=== PATIENT | male | born 1940 | race Caucasian/White ===

== ENCOUNTER 2016-12-15 09:16 | Emergency (ER) | payer OTHER, MEDICARE ==
[2016-12-15 09:23] VITALS: TEMP 97.4; BMI 26.6
[2016-12-15] MEDS ORDERED: SODIUM CHLORIDE 500 ML IV STA (09:31)
[2016-12-15 09:47] LABS: BASOPHIL 2.2 % (0-2.0); EOSINOPHIL 2.7 % (0-4.5); MCH 30.9 pg (25.7-33.7); MCHC 34.1 g/dl (32.0-35.9); MEAN CELL VOLUME 90.7 fl (80-96); MEAN PLT VOLUME 8.2 fl (7.5-11.1); NEUTROPHILS 58.4 % (42.8-82.8); PLATELET COUNT 193 K/MM3 (134-434); RDW 13.9 % (11.9-15.9); WHITE BLOOD COUNT 7.4 K/mm3 (4.0-10.0)
[2016-12-15 10:07] LABS: ALBUMIN 3.4 g/dl (3.4-5.0); ANION GAP 7 (8-16); BILIRUBIN,TOTAL 1.5 mg/dL (0.2-1.0); CALCIUM 9.1 mg/dL (8.5-10.1); CO2 29 mmol/L (21-32); CREATININE 1.3 mg/dL (0.7-1.3); GLUCOSE,RANDOM 106 mg/dL (74-106); SGOT/AST 17 U/L (15-37); SGPT/ALT 23 U/L (12-78); TOT PROT 6.9 g/dl (6.4-8.2)
[2016-12-15 10:09] LABS: ALK PHOS 53 U/L (45-117); TROPONIN I < 0.02 ng/ml (0.00-0.05)
[2016-12-15 10:46] LABS: INR 1.07 (0.82-1.09); PROTHROMBIN TIME (PATIENT) 11.8 SEC (9.98-11.88)
--- NOTE | 2016-12-15 11:10 | PDOC ---
History of Present Illness - General Chief Complaint: Syncope/Near Syncope Stated Complaint: Syncope/Near Syncope Time Seen by Provider: 12/15/16 09:19 History Source: Patient Exam Limitations: No Limitations - History of Present Illness Initial Comments: 12/15/16 11:34 76-year-old male presents to the ED with a near syncopal episode. Patient states was in cardiology to receive Persantine stress test when the IV was placed into his right hand and patient began to complain of dizziness and felt as if he was going to faint. Patient denied chest pain, nausea, visual changes, headache, or palpitations with episode. Patient states history of CAD, CVA with no residual, and near syncope. Presenting Symptoms: Near-Syncope Timing/Duration: reports: resolved prior to arrival Severity/Quality: reports: mild Nitro Today/Relief: Yes: no nitro taken today Aspirin Received prior to arrival (Core Measure): Yes: no aspirin today Associated Symptoms: Yes: Dizziness, Syncope (near) Past History - Past Medical History Allergies/Adverse Reactions: Allergies Allergy/AdvReac Type Severity Reaction Status Date / Time poison luz extract Allergy Severe Verified 12/15/16 09:18 [Poison Luz Extract] Home Medications: Ambulatory Orders Aspirin Coated [Ecotrin -] 81 mg PO DAILY #90 tablet.ec 11/16/14 Atenolol [Tenormin -] 25 mg PO DAILY 11/30/15 Amlodipine Besylate 5 mg PO DAILY 12/15/16 Anemia: No Asthma: No Cancer: No Cardiac Disorders: No CVA: Yes (CVA 01/2014, 11/27) COPD: No CHF: No Dementia: No Diabetes: No GI Disorders: No Disorders: No HTN: Yes Hypercholesterolemia: Yes Liver Disease: No Suicide Attempt (Hx): No Seizures: No Thyroid Disease: No - Surgical History Abdominal Surgery: No Appendectomy: Yes Cardiac Surgery: No Cholecystectomy: No Lung Surgery: No Neurologic Surgery: No Orthopedic Surgery: No - Immunization History Immunization Up to Date: Yes - Psycho/Social/Smoking Cessation Hx Anxiety: No Suicidal Ideation: No Smoking Status: No Smoking History: Never smoked Years of Tobacco Use: 0 Have you smoked in the past 12 months: No Number of Cigarettes Smoked Daily: 0 Information on smoking cessation initiated: No Hx Alcohol Use: No Drug/Substance Use Hx: No Substance Use Type: None Hx Substance Use Treatment: No Cardiac Specific PMH - Complaint Specific PMHX Angina: Yes Pacemaker: No Review of Systems - Review of Systems Able to Perform ROS?: Yes Constitutional: No: Symptoms Reported HEENTM: No: Symptoms Reported Respiratory: No: Symptoms reported Cardiac (ROS): Yes: Lightheadedness, Syncope (near) ABD/GI: No: Symptoms Reported : No: Symptoms Reported Musculoskeletal: No: Symptoms Reported Integumentary: No: Symptoms Reported Neurological: No: Symptoms reported Endocrine: No: Symptoms Reported Hematologic/Lymphatic: No: Symptoms Reported *Physical Exam - Vital Signs Last Vital Signs Temp Pulse Resp BP Pulse Ox 97.4 F L 65 16 153/76 97 12/15/16 09:18 12/15/16 10:01 12/15/16 10:01 12/15/16 10:01 12/15/16 10:01 - Physical Exam General Appearance: Yes: Nourished, Appropriately Dressed. No: Apparent Distress HEENT: positive: EOMI, NEIL, TMs Normal, Pharynx Normal (moist). negative: Pale Conjunctivae Neck: positive: Supple Respiratory/Chest: positive: Lungs Clear, Normal Breath Sounds. negative: Respiratory Distress, Accessory Muscle Use Cardiovascular: positive: Regular Rhythm, Regular Rate. negative: Murmur Vascular Pulses: Dorsalis-Pedis (R): 2+, Doralis-Pedis (L): 2+ Gastrointestinal/Abdominal: positive: Soft. negative: Tenderness Integumentary: positive: Normal Color, Warm, Moist. negative: Pale, Clammy Neurologic: positive: Normal Mood/Affect, Motor Strength 5/5 (moving all extremeties actively) Heart Score/ECG Review - ECG Intrepretation Rhythm: Regular Rhythm (rate 71. normal sinus rhythm. no acute findings) ED Treatment Course - LABORATORY CBC & Chemistry Diagram: 12/15/16 09:34 12/15/16 09:34 - ADDITIONAL ORDERS Additional order review: Laboratory Results 12/15/16 12/15/16 12/15/16 11:20 09:34 09:34 INR 1.07 Sodium 142 Potassium 4.4 Chloride 106 Carbon Dioxide 29 D Anion Gap 7 L BUN 23 H D Creatinine 1.3 Creat Clearance w eGFR 53.82 Random Glucose 106 Calcium 9.1 Total Bilirubin 1.5 H D AST 17 D ALT 23 D Alkaline Phosphatase 53 Creatine Kinase 77 Troponin I < 0.02 Total Protein 6.9 Albumin 3.4 Urine Color Ltyellow Urine Appearance Clear Urine pH 6.0 Ur Specific [place] 1.016 Urine Protein Negative Urine Glucose (UA) Negative Urine Ketones Negative Urine Blood 1+ H Urine Nitrite Negative Urine Bilirubin Negative Urine Urobilinogen Negative Ur Leukocyte Esterase Negative Urine RBC <1 Urine WBC 2 Urine Mucus Rare 12/15/16 09:34 INR Sodium Cancelled Potassium Cancelled Chloride Cancelled Carbon Dioxide Cancelled Anion Gap Cancelled BUN Cancelled Creatinine Cancelled Creat Clearance w eGFR Cancelled Random Glucose Cancelled Calcium Cancelled Total Bilirubin Cancelled AST Cancelled ALT Cancelled Alkaline Phosphatase Cancelled Creatine Kinase Troponin I Total Protein Cancelled Albumin Cancelled Urine Color Urine Appearance Urine pH Ur Specific [place] Urine Protein Urine Glucose (UA) Urine Ketones Urine Blood Urine Nitrite Urine Bilirubin Urine Urobilinogen Ur Leukocyte Esterase Urine RBC Urine WBC Urine Mucus 12/15/16 09:34 RBC 4.51 MCV 90.7 MCHC 34.1 RDW 13.9 MPV 8.2 Neutrophils % 58.4 Lymphocytes % 27.7 Monocytes % 9.0 Eosinophils % 2.7 D Basophils % 2.2 H D - Medications Given in the ED: ED Medications Discontinued Medications Generic Name Dose Route Start Last Admin Trade Name Freq PRN Reason Stop Dose Admin Sodium Chloride 500 mls @ 500 mls/hr 12/15/16 09:31 12/15/16 09:33 Normal Saline - IV 12/15/16 10:30 500 mls/hr ASDIR STA Administration Medical Decision Making - Medical Decision Making 12/15/16 09:49 Patient with a near syncopal episode after having an IV placed in his right hand. Patient arrives asymptomatic but did have a rapid response called cardiac cardiology since patient was preparing for a Persantine stress test. Patient states did eat oatmeal this morning and denies any discomfort presently. Patient concerning for ACS but likely due to vasovagal or pain response. Patient will also have urine and IV fluids ordered. 12/15/16 11:51 Laboratory Tests 12/15/16 12/15/16 12/15/16 09:34 09:34 09:34 WBC 7.4 D Hgb 13.9 D Hct 40.9 D Neutrophils % 58.4 INR 1.07 Sodium 142 Potassium 4.4 Chloride 106 Carbon Dioxide 29 D Anion Gap 7 L BUN 23 H D Creatinine 1.3 Total Bilirubin 1.5 H D AST 17 D ALT 23 D Troponin I < 0.02 Urine Blood Ur Leukocyte Esterase Urine WBC 12/15/16 11:20 WBC Hgb Hct Neutrophils % INR Sodium Potassium Chloride Carbon Dioxide Anion Gap BUN Creatinine Total Bilirubin AST ALT Troponin I Urine Blood 1+ H Ur Leukocyte Esterase Negative Urine WBC 2 Chest x-ray negative. Case will be discussed with Dr. romo, patient's primary care physician since patient has remained pain symptomatic since being in the ER and requesting to eat. 12/15/16 11:54 Case discussed with patient's primary care physician Dr. Romo who agrees patient may be discharged home and told to follow-up with him in the office next week to have his stress test rescheduled. Patient will go home with son and . Patient tolerated a breakfast with coffee. will repeat vitals. *DC/Admit/Observation/Transfer Diagnosis at time of Disposition: Vasovagal near-syncope - Discharge Dispostion Disposition: HOME Condition at time of disposition: Improved - Referrals Referrals: Umer Romo MD [Primary Care Provider] - - Patient Instructions Printed Discharge Instructions: DI for Dizziness-Nonvertigo Additional Instructions: I have spoken to Dr. romo and feels he may be discharged home and to follow- up with him in the office next week to have your stress test rescheduled. I recommending resting today and eating a well-balanced meal including fluids. If you develop any chest pain, dizziness, or nausea please return to the emergency room immediately
[2016-12-15 11:36] LABS: URINE APPEARANCE CLEAR; URINE BILIRUBIN NEGATIVE (NEGATIVE); URINE COLOR LTYELLOW; URINE GLUCOSE (UA) NEGATIVE (NEGATIVE); URINE KETONE NEGATIVE (NEGATIVE); URINE LEUK ESTERASE NEGATIVE (NEGATIVE); URINE NITRITE NEGATIVE (NEGATIVE); URINE PROTEIN NEGATIVE (NEGATIVE); URINE UROBILINOGEN NEGATIVE E.U./dl (0.2-1.0)
[2016-12-15 11:40] LABS: URINE BLOOD 1+ (NEGATIVE)
[2016-12-15 11:44] LABS: URINE MUCUS RARE; URINE RBC <1 /hpf (0-3); URINE WBC 2 /hpf (3-5)
[2016-12-15 12:15] VITALS: BP 145/86; PULSE 78
--- NOTE | 2016-12-15 17:26 | EKG ---
Test Reason : Blood Pressure : / mmHG Vent. Rate : 071 BPM Atrial Rate : 071 BPM P-R Int : 206 ms QRS Dur : 090 ms QT Int : 402 ms P-R-T Axes : 020 038 010 degrees QTc Int : 436 ms NORMAL SINUS RHYTHM NORMAL ECG WHEN COMPARED WITH ECG OF 16-FEB-2015 08:36, NONSPECIFIC T WAVE ABNORMALITY NO LONGER EVIDENT IN LATERAL LEADS Confirmed by MARTIN YOUNG MD ([id number]) on 12/15/2016 5:26:01 PM Referred By: Confirmed By:MARTIN YOUNG MD
== END 2016-12-15 12:18 | disposition home or self-care (01) ==
LOC: JER 09:16
PROC: 3E0337Z Introduction of Electrolytic and Water Balance Substance into Peripheral Vein, Percutaneous Approach (ICD-10-PCS; principal; 2016-12-15)
DX: R55 Syncope and collapse (principal); I10 Essential (primary) hypertension; E78.00 Pure hypercholesterolemia, unspecified; Z86.73 Personal history of transient ischemic attack (TIA), and cerebral infarction without residual deficits
CPT/HCPCS: 36415; 71010-TC; 80053; 81003; 81015; 82550; 84484; 85025; 85610; 93005; 93010; 99285-25

== ENCOUNTER 2018-12-11 12:49 | Observation (INO) | payer OTHER, MEDICARE ==
[2018-12-11 13:47] LABS: BASO % 0.5 % (0-2.0); HEMATOCRIT 40.3 % (35.4-49); HEMOGLOBIN 14.2 GM/dL (11.7-16.9); MCH 32.9 pg (25.7-33.7); MCHC 35.3 g/dl (32.0-35.9); MEAN CELL VOLUME 93.3 fl (80-96); MEAN PLT VOLUME 8.1 fl (7.5-11.1); MONO % 7.2 % (3.8-10.2); NEUT % 81.3 % (42.8-82.8); PLATELET COUNT 187 K/MM3 (134-434); RBC 4.32 M/mm3 (4.00-5.60); RDW 13.1 % (11.9-15.9); WHITE BLOOD COUNT 10.1 K/mm3 (4.0-10.0)
--- NOTE | 2018-12-11 13:53 | PDOC ---
History of Present Illness <Christel Cardona - Last Filed: 12/11/18 17:55> - General History Source: Patient, EMS, Family Exam Limitations: No Limitations <Megan Decker - Last Filed: 12/14/18 07:18> - General Chief Complaint: Syncope/Near Syncope Stated Complaint: HYPOTENSION Time Seen by Provider: 12/11/18 12:58 - History of Present Illness Initial Comments: 12/11/18 15:18 78 year old male with PMH of HTN, CVA(with residual R sided weakness), cervical spine radiculopathy, duodenal ulcer, head trauma in , PTSD, and obstructive sleep apnea [place]S [place] with son at bedside for syncope and weakness in lower extremities, that precipitated his fall yesterday. As per son at bedside, patient had a syncopal episode at 1230pm lasting for a few seconds at the [place] clinic for [place] doctors appointment. As per son , patient has had worsening weakness in lower extremities within the last month. Son reports patient fell and struck his head on a tool box last night and subsequently denied seeking medical evaluation. EMS administered IV fluids en route to ED secondary to patient being hypotensive on scene. Denies chest pain, shortness of breath, headache, dizziness, and recurrent falls. As per son at bedside, patient visits [place] clinic for physical therapy. Of note, patient has left lower extremities tremors and right lower extremity weakness at baseline. PCP: Dr. Romo Machine Washer: Dr. Miranda MENA Constitutional: no fevers or chills. HEENT: no headache or dizziness. No congestion. No visual/hearing disturbances. CVS: no cp or syncope. Resp: no sob. No cough. Gastrointestinal: no abdominal pain, nausea or vomiting. Genitourinary: no urinary sx, hematuria. MUSCULOSKELETAL: No joint pain and swelling. No neck or back pain. SKIN: no redness or skin changes, no discharge, no rash. No wounds. Hematologic: no easy bruising/bleeding. NEUROLOGIC: (+)Weakness in lower extremities >upper extremities with fall last night and no LOC. (+)syncope. No headache, dizziness, or altered mental status. No numbness or tingling. Allergic/Immunologic: no allergies All other systems reviewed and negative, or as documented in HPI. Physical exam (general medical) General: Well appearing, awake and alert, NAD. GCS 15 HEENT: PERRL, EOMI, clear conjunctiva, anicteric, moist mucus membranes, clear oropharynx, no oral lesions.. +Right temporal forehead swelling and ecchymosis. Neck: neck supple, FROM Resp: CTAB, normal and even respirations, no respiratory distress CVS: RRR, no murmurs, 2+ peripheral pulses throughout, no peripheral edema Abdomen: soft, NTND, no rebound or guarding. No CVAT. Back: nontender, normal inspection and ROM MSK: no edema, MELENEDZ x4, ROM intact. No clubbing or cyanosis. normal bulk and tone. Extremities: no calf tenderness Neuro: alert, oriented appropriately; no focal neurologic deficits, 5/5 prox and distal strength in all extrem. No pronator drift. No dysmetria, finger to nose bilaterally symmetric. Speech clear. Skin: warm and well perfused, cap refill <2 sec, normal color (Christel Cardona) Past History <Christel Cardona - Last Filed: 12/11/18 17:55> - Past Medical History Anemia: No Asthma: No Cancer: No Cardiac Disorders: No CVA: Yes (CVA 01/2014, 11/27) COPD: No CHF: No Dementia: No Diabetes: No GI Disorders: No Disorders: No HTN: Yes Hypercholesterolemia: Yes Liver Disease: No Seizures: No Thyroid Disease: No Other medical history: CERVICA SPINE RADICULOPATHY, FX S1-S3,PTSD [place] [facility] - Surgical History Abdominal Surgery: No Appendectomy: Yes Cardiac Surgery: No Cholecystectomy: No Lung Surgery: No Neurologic Surgery: No Orthopedic Surgery: No - Immunization History Immunization Up to Date: Yes - Suicide/Smoking/Psychosocial Hx Smoking Status: No Smoking History: Never smoked Years of Tobacco Use: 0 Have you smoked in the past 12 months: No Number of Cigarettes Smoked Daily: 0 Information on smoking cessation initiated: No Hx Alcohol Use: No Drug/Substance Use Hx: No Substance Use Type: None Hx Substance Use Treatment: No <Megan Decker - Last Filed: 12/14/18 07:18> - Past Medical History Allergies/Adverse Reactions: Allergies Allergy/AdvReac Type Severity Reaction Status Date / Time poison luz extract Allergy Severe Verified 12/11/18 13:11 [Poison Luz Extract] Home Medications: Ambulatory Orders Amlodipine Besylate 5 mg PO DAILY 12/15/16 Nortriptyline HCl [Pamelor -] 10 mg PO HS 12/11/18 Oxybutynin Chloride [Ditropan Xl] 10 mg PO DAILY 12/11/18 Tamsulosin HCl 0.4 mg PO DAILY 12/11/18 Amlodipine Besylate 5 mg PO DAILY 12/12/18 Aspirin [ASA -] 81 mg PO DAILY 12/12/18 Atorvastatin Ca [Lipitor] 10 mg PO HS 12/12/18 Donepezil HCl 10 mg PO DAILY 12/12/18 Metoprolol Tartrate 25 mg PO DAILY 12/12/18 Oxybutynin Chloride [Oxybutynin Chloride ER] 10 mg PO DAILY 12/12/18 Tamsulosin HCl 0.4 mg PO DAILY 12/12/18 Cardiac Specific PMH - Complaint Specific PMHX Angina: Yes Pacemaker: No <Megan Decker - Last Filed: 12/14/18 07:18> - Vital Signs Last Vital Signs Temp Pulse Resp BP Pulse Ox 98.1 F 65 20 129/68 95 12/13/18 14:00 12/13/18 14:00 12/13/18 14:00 12/13/18 14:00 12/13/18 07:31 - Procedure Monitoring Vital Signs: Procedure Monitoring Vital Signs Temperature 98.1 F 12/13/18 14:00 Pulse Rate 65 12/13/18 14:00 Respiratory Rate 20 12/13/18 14:00 Blood Pressure 129/68 12/13/18 14:00 O2 Sat by Pulse Oximetry (%) 95 12/13/18 07:31 ED Treatment Course - LABORATORY CBC & Chemistry Diagram: 12/11/18 13:22 12/11/18 13:22 <Christel Cardona - Last Filed: 12/11/18 17:55> - LABORATORY CBC & Chemistry Diagram: 12/11/18 13:22 12/11/18 13:22 <Megan Decker - Last Filed: 12/14/18 07:18> - ADDITIONAL ORDERS Additional order review: 12/11/18 13:22 RBC 4.32 MCV 93.3 MCHC 35.3 RDW 13.1 MPV 8.1 Neutrophils % 81.3 D Lymphocytes % 9.0 D Monocytes % 7.2 Eosinophils % 2.0 Basophils % 0.5 - RADIOLOGY Radiology Studies Ordered: Category Date Time Status HEAD CT WITHOUT CONTRAST [CT] Stat CT Scan 12/11/18 14:25 Completed CHEST X-RAY PORTABLE* [RAD] Stat Radiology 12/11/18 12:59 Completed - Medications Given in the ED: ED Medications Discontinued Medications Generic Name Dose Route Start Last Admin Trade Name Zenq PRN Reason Stop Dose Admin Aspirin 81 mg 12/13/18 10:00 12/13/18 09:38 Asa - PO 81 mg DAILY VICKI Administration Atorvastatin Calcium 20 mg 12/12/18 22:00 12/12/18 22:05 Lipitor - PO 20 mg HS VICKI Administration Donepezil HCl 10 mg 12/12/18 22:00 12/12/18 22:05 Aricept - PO 10 mg HS VICKI Administration Guaifenesin 10 ml 12/12/18 00:20 12/12/18 01:41 Robitussin - PO 12/12/18 00:21 10 ml ONCE ONE Administration Heparin Sodium (Porcine) 5,000 unit 12/12/18 22:00 12/13/18 09:38 Heparin - SQ 5,000 unit BID VICKI Administration Sodium Chloride 1,000 mls @ 75 mls/hr 12/12/18 11:30 12/12/18 11:49 Normal Saline - IV 75 mls/hr ASDIR VICKI Administration Metoprolol Tartrate 25 mg 12/12/18 11:30 12/13/18 09:38 Lopressor - PO 25 mg DAILY VICKI Administration Nortriptyline HCl 10 mg 12/12/18 22:00 12/12/18 22:11 Pamelor - PO 10 mg HS VICKI Administration Tamsulosin HCl 0.4 mg 12/12/18 11:30 12/13/18 09:38 Flomax - PO 0.4 mg DAILY@0830 VICKI Administration Medical Decision Making <Christel Cardona - Last Filed: 12/11/18 17:55> <Megan Decker - Last Filed: 12/14/18 07:18> - Medical Decision Making 12/11/[address] Mackenzie at 16:54. (Christel Cardona) 12/11/18 15:42 I, Megan Decker MD, attest that this document has been prepared under my direction and personally reviewed by me in its entirety. I further attest, that it accurately reflects all work, treatment, procedures and medical decision -making performed by me. See HPI for details Vital signs reviewed, wnl. normotensive here. Prior notes reviewed, including admissions, discharges and consultations. laboratory results and imaging reviewed, basic labs and lytes wnl, baseline anemia, no changes UA_neg for infection. CXR_large heart, unremarkable otherwise Cardiac panel_neg trop EKG normal sinus rhythm, no interval abnormalities, narrow QRS, ST and T wave segments and morphology normal. Nonspecific T wave abnormalities - unchanged from prior CT head neg for bleed or injury. +cerebral atrophy with microvessel changes, chronic sinusitis, but not symptomatic. ED course: no acute events. NIHSS 1, for chronic LLE weakness/drift. no other acute changes/deficits. doubt CVA with exam and findings gait at baseline, but feels dizzy. with assistance. cards cs with Dr Carmen, per request, consult placed in (shot man is usually Dr Malik) admitting to Dr Mackenzie, placed in. dispo: admit for syncope workup, tele monitor. gait at risk of falls, so will need PT eval and therapy/adjustments. pt and family made aware of impression and plan.. 12/11/18 17:54 12/14/18 07:18 (Megan Decker) *DC/Admit/Observation/Transfer <Christel Cardona - Last Filed: 12/11/18 17:55> - Discharge Dispostion Decision to Admit order: Yes <Megan Decker - Last Filed: 12/14/18 07:18> Diagnosis at time of Disposition: Syncope, Weakness - Discharge Dispostion Disposition: HOME Condition at time of disposition: Improved - Attestations Scribe Attestion: Documentation prepared by Christel Cardona, acting as medical office administrator for Megan Decker MD. (Christel Cardona) NIH Stroke Scale - Last Known Well Date/Time & Onset Date Last Known Well: 12/11/18 Time Last Known Well: 12:30 - Initial Evaluation Level of consciousness: Alert Ask patient the month and their age: Answers both correctly Ask patient to open & close eyes; make fist and let go: Obeys both correctly Best gaze (horizontal eye movement): Normal Visual field testing: No visual field loss Facial paresis (Show teeth/raise eyebrows/close eyes tight): Normal symmetrical movement Motor Function: Left Arm: Normal Motor Function: Right Arm: Normal (extends arm 90 (or 45) degrees for 10 seconds without drift Motor Function: Left Leg: Drift Motor Function: Right Leg: Normal (extends leg 30 degrees for 5 seconds without drift) Limb Ataxia: No ataxia Sensory(Use pinprick test arms,legs,trunk,face/side to side): Normal Best language (Describe picture, name items, read sentences): No Aphasia Dysarthria (read several words): Normal articulation Extinction and Inattention: No abnormality (chronic) - Total Score NIH Stroke Scale Score: 1 <Megan Decker - Last Filed: 12/14/18 07:18>
[2018-12-11 13:56] LABS: INR 1.06 (0.83-1.09); PROTHROMBIN TIME (PATIENT) 12.5 SEC (9.7-13.0)
[2018-12-11 14:18] LABS: ALBUMIN 3.4 g/dl (3.4-5.0); ALK PHOS 57 U/L (45-117); ANION GAP 4 MMOL/L (8-16); BILIRUBIN,TOTAL 1.1 mg/dL (0.2-1); BLOOD UREA NITROGEN 15 mg/dL (7-18); CALCIUM 8.1 mg/dL (8.5-10.1); CHLORIDE 105 mmol/L (98-107); CO2 29 mmol/L (21-32); CREATININE 1.3 mg/dL (0.55-1.3); GLUCOSE,RANDOM 109 mg/dL (74-106); POTASSIUM 3.6 mmol/L (3.5-5.1); SGOT/AST 26 U/L (15-37); SGPT/ALT 35 U/L (13-61); SODIUM 138 mmol/L (136-145)
--- NOTE | 2018-12-11 15:49 | EKG ---
Test Reason : Blood Pressure : / mmHG Vent. Rate : 071 BPM Atrial Rate : 071 BPM P-R Int : 194 ms QRS Dur : 092 ms QT Int : 418 ms P-R-T Axes : 016 001 020 degrees QTc Int : 454 ms NORMAL SINUS RHYTHM MODERATE VOLTAGE CRITERIA FOR LVH, MAY BE NORMAL VARIANT BORDERLINE ECG WHEN COMPARED WITH ECG OF 15-DEC-2016 09:19, NO SIGNIFICANT CHANGE WAS FOUND Confirmed by Ez Higgins ([id number]) on 12/11/2018 3:49:18 PM Referred By: Confirmed By:Ez Higgins
[2018-12-12] MEDS ORDERED: guaiFENesin 200 MG/10 ML 10 ML UNIT-DOSE CUPS PO ONE (00:20)
[2018-12-12] MEDS ORDERED: guaiFENesin 200 MG/10 ML 10 ML UNIT-DOSE CUPS ONE (01:31)
[2018-12-12 05:02] LABS: URINE APPEARANCE SLCLOUDY; URINE BILIRUBIN NEGATIVE (<2.0 mg/dL); URINE COLOR DKYELLOW; URINE GLUCOSE (UA) NEGATIVE (NEGATIVE); URINE KETONE NEGATIVE (NEGATIVE); URINE LEUK ESTERASE NEGATIVE (NEGATIVE); URINE NITRITE NEGATIVE (NEGATIVE); URINE PROTEIN 1+ (NEGATIVE)
[2018-12-12 05:16] LABS: EPI CELLS RARE /HPF (FEW)
[2018-12-12 07:40] VITALS: BMI 24.8
--- NOTE | 2018-12-12 11:19 | HP ---
Admitting History and Physical - Primary Care Physician PCP: Umer Romo - Admission Chief Complaint: syncope History of Present Illness: ER HISTORY - History of Present Illness Initial Comments: 12/11/18 15:18 78 year old male with PMH of HTN, CVA(with residual R sided weakness), cervical spine radiculopathy, duodenal ulcer, head trauma in , PTSD, and obstructive sleep apnea [place]EMS [place] with son at bedside for syncope and weakness in lower extremities, that precipitated his fall yesterday. As per son at bedside, patient had a syncopal episode at 1230pm lasting for a few seconds at the [place] clinic for a doctors appointment. As per son , patient has had worsening weakness in lower extremities within the last month. Son reports patient fell and struck his head on a tool box last night and subsequently denied seeking medical evaluation. EMS administered IV fluids en route to ED secondary to patient being hypotensive on scene. Denies chest pain, shortness of breath, headache, dizziness, and recurrent falls. As per son at bedside, patient visits [place] clinic for physical therapy. Of note, patient has left lower extremities tremors and right lower extremity weakness at baseline. PCP: Dr. Romo Profile Shaper Operator: Dr. Jean Pt examined by me in Tele Forgetful Had fallen a few days ago and hit his head-- no LOC Denies chest pain , dizziness, palpitations History Source: Patient, Medical Record Limitations to Obtaining History: Poor Historian - Past Medical History [employer]: Yes: CVA, Dementia Cardiovascular: Yes: Aortic Insufficiency, HTN - Smoking History Smoking history: Never smoked Have you smoked in the past 12 months: No Aproximately how many cigarettes per day: 0 - Alcohol/Substance Use Hx Alcohol Use: No - Social History History of Recent Travel: No Home Medications - Allergies Allergies/Adverse Reactions: Allergies Allergy/AdvReac Type Severity Reaction Status Date / Time poison luz extract Allergy Severe Verified 12/11/18 13:11 [Poison Luz Extract] - Home Medications Home Medications: Ambulatory Orders Amlodipine Besylate 5 mg PO DAILY 12/15/16 Finasteride 5 mg PO DAILY 12/11/18 Nortriptyline HCl [Pamelor -] 10 mg PO HS 12/11/18 Oxybutynin Chloride [Ditropan Xl] 10 mg PO DAILY 12/11/18 Tamsulosin HCl 0.4 mg PO DAILY 12/11/18 Amlodipine Besylate 5 mg PO DAILY 12/12/18 Aspirin [ASA -] 81 mg PO DAILY 12/12/18 Atorvastatin Ca [Lipitor] 10 mg PO HS 12/12/18 Donepezil HCl 10 mg PO DAILY 12/12/18 Finasteride 5 mg PO DAILY 12/12/18 Gabapentin 300 mg PO DAILY 12/12/18 Metoprolol Tartrate 25 mg PO DAILY 12/12/18 Oxybutynin Chloride [Oxybutynin Chloride ER] 10 mg PO DAILY 12/12/18 Tamsulosin HCl 0.4 mg PO DAILY 12/12/18 Review of Systems - Review of Systems Constitutional: denies: Chills, Fever, Loss of Appetite, Weakness Cardiovascular: denies: Chest Pain, Palpitations, Shortness of Breath Physical Examination Vital Signs: Vital Signs Temperature 97.5 F L 12/12/18 05:00 Pulse Rate 78 12/12/18 05:00 Respiratory Rate 18 12/12/18 08:44 Blood Pressure 140/78 12/12/18 05:00 O2 Sat by Pulse Oximetry (%) 98 12/12/18 08:44 Constitutional: Yes: No Distress, Calm Cardiovascular: Yes: Regular Rate and Rhythm, Murmur Respiratory: Yes: CTA Bilaterally Gastrointestinal: Yes: Normal Bowel Sounds, Soft. No: Tenderness Edema: No Labs: CBC, BMP 12/11/18 13:22 12/11/18 13:22 Imaging - Results Chest X-ray: Image Reviewed (no infiltrate) Cat Scan: Report Reviewed EKG: Image Reviewed (NSR) Problem List - Problems (1) HTN (hypertension) Code(s): I10 - ESSENTIAL (PRIMARY) HYPERTENSION (2) Dementia Code(s): F03.90 - UNSPECIFIED DEMENTIA WITHOUT BEHAVIORAL DISTURBANCE (3) Syncopal episodes Code(s): R55 - SYNCOPE AND COLLAPSE (4) Weakness Code(s): R53.1 - WEAKNESS Assessment/Plan PLAN Syncope- - CT head negative -check orthostsis -start Iv fluids -dc Norvasc, Finasteride -Check echo, carotid doppler -cardiology eval - fall precautions -physical therapy evaluation - telemetry HTN -- dc Norvasc for now --monitor BP Dementia -supportive care, on meds BPH -- will continue with Flomax only, holding Finasteride- pt was hypotensive per EMS DVT prophylaxis -- heparin sc
[2018-12-12] MEDS ORDERED: SODIUM CHLORIDE 1,000 ML IV SCH (11:30)
[2018-12-12] MEDS ORDERED: amLODIPine BESYLATE 5 MG TABLET (FP) PO SCH (11:30)
[2018-12-12] MEDS: METOPROLOL TARTRATE 25 MG TABLET (FP) PO SCH (11:49)
[2018-12-12] MEDS: TAMSULOSIN HCL 0.4 MG CAP PO SCH (11:49)
--- NOTE | 2018-12-12 13:43 | ECHO ---
Name: AYANA BOND JR Exam:Adult Echocardiogram Study Date: 12/12/2018 11:39 AM Age: 78 yrs Reason For Study: SYNCOPE Height: 71 in Weight: 178 lb BSA: 2.0 m2 MMode/2D Measurements & Calculations IVSd: 1.0 cm EDV(Teich): 142.7 ml LVIDd: 5.4 cm ESV(Teich): 47.0 ml LVIDs: 3.4 cm LVPWd: 0.90 cm TAPSE: 2.6 cm Doppler Measurements & Calculations Ao V2 max: 161.9 cm/sec AI max lissa: 292.4 cm/sec Ao max P.5 mmHg AI max P.5 mmHg Ao V2 mean: 105.6 cm/sec Ao mean P.2 mmHg AI dec slope: 247.5 cm/sec2 Ao V2 VTI: 33.1 cm AI P1/2t: 346.1 msec LV V1 max P.4 mmHg TR max lissa: 191.0 cm/sec LV V1 mean P.8 mmHg TR max P.6 mmHg LV V1 max: 92.7 cm/sec LV V1 mean: 64.4 cm/sec LV V1 VTI: 19.0 cm Med Peak E' Lissa: 4.0 cm/sec Lat Peak E' Lissa: 7.5 cm/sec Procedure A two-dimensional transthoracic echocardiogram with color flow and Doppler was performed. Left Ventricle The left ventricular size, thickness and function are normal. Proximal septal thickening is noted. Th e left ventricular ejection fraction is normal. The left ventricular wall motion is normal. Right Ventricle The right ventricle is normal in size and function. Atria Normal left and right atrial size and function. Mitral Valve There is mild mitral valve thickening. There is no mitral valve stenosis. There is mild mitral regurg itation. Tricuspid Valve There is mild tricuspid valve thickening. There is no tricuspid stenosis. There is mild tricuspid regurgitation. Right ventricular systolic pressure is normal. Aortic Valve The aortic valve is not well visualized. There is mild aortic valve thickening. No hemodynamically si gnificant valvular aortic stenosis. Moderate aortic regurgitation. Pulmonic Valve The pulmonic valve is not well visualized. There is no pulmonic valvular stenosis. Mild pulmonic valv ular regurgitation. Great Vessels The aortic root is not well visualized. Pericardium/Pleura There is no pericardial effusion. Interpretation Summary The left ventricular size, thickness and function are normal The left ventricular ejection fraction is normal. The left ventricular wall motion is normal. Moderate aortic regurgitation. Proximal septal thickening is noted. There is mild tricuspid regurgitation. Right ventricular systolic pressure is normal. There is mild mitral regurgitation. MD Shane Currie 12/12/2018 01:43 PM
--- NOTE | 2018-12-12 15:44 | CON.CARD ---
Consult Consult Specialty:: Cardiology Referred by:: Dr. 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 pt seen and examined today in [facility] with his son present. pt states that he was sitting in his doctors office when he suddenly lost consciousness. he thought he fell asleep. no preceding symptoms. his son witnessed it and states he was unresponsive to sternal rub only woke up when ems arrived and placed an IV. As per report ems found him to be hypotensive. pt states he has had 2 similar episodes in the past, one a few years ago and 1 in 2014 at the time of his cva. denies any chest pain, sob, palpitations, lightheadedness, dizziness, pnd, orthopnea, or LE edema. - History Source History Provided By: Patient, Family Member - Past Medical History PATIENT TRANSPORT ORDERLY: Yes: CVA, Dementia Cardio/Vascular: Yes: Aortic Insufficiency, HTN - Alcohol/Substance Use Hx Alcohol Use: No - Smoking History Smoking history: Never smoked Have you smoked in the past 12 months: No Aproximately how many cigarettes per day: 0 - Social History History of Recent Travel: No Home Medications - Allergies Allergies/Adverse Reactions: Allergies Allergy/AdvReac Type Severity Reaction Status Date / Time poison luz extract Allergy Severe Verified 12/11/18 13:11 [Poison Ulz Extract] - Home Medications Home Medications: Ambulatory Orders Amlodipine Besylate 5 mg PO DAILY 12/15/16 Finasteride 5 mg PO DAILY 12/11/18 Nortriptyline HCl [Pamelor -] 10 mg PO HS 12/11/18 Oxybutynin Chloride [Ditropan Xl] 10 mg PO DAILY 12/11/18 Tamsulosin HCl 0.4 mg PO DAILY 12/11/18 Amlodipine Besylate 5 mg PO DAILY 12/12/18 Aspirin [ASA -] 81 mg PO DAILY 12/12/18 Atorvastatin Ca [Lipitor] 10 mg PO HS 12/12/18 Donepezil HCl 10 mg PO DAILY 12/12/18 Finasteride 5 mg PO DAILY 12/12/18 Gabapentin 300 mg PO DAILY 12/12/18 Metoprolol Tartrate 25 mg PO DAILY 12/12/18 Oxybutynin Chloride [Oxybutynin Chloride ER] 10 mg PO DAILY 12/12/18 Tamsulosin HCl 0.4 mg PO DAILY 12/12/18 Family Disease History - Family Disease History Family History: Denies Review of Systems - Review of Systems Constitutional: denies: No Symptoms, Chills, Diaphoresis, Fever, Lethargy, Loss of Appetite, Malaise, Night Sweats, Unintentional Wgt. Loss, Weakness, Other Eyes: denies: No Symptoms, Blind Spots, Blurred Vision, Double Vision, Eye Pain , Floaters, Photophobia, Recent Change in Vision, Other HENT: reports: Difficult Swallowing. denies: No Symptoms, Ear Discharge, Ear Pain, Epistaxis, Gingival Bleeding, Hearing Loss, Mouth Swelling, Nasal Congestion, Ocular Prosthesis, Throat Pain, Toothache, Ringing in Ears, Other Neck: denies: No Symptoms, Decreased ROM, Lumps, Pain on Movement, Stiffness, Swollen Glands, Tenderness, Other Cardiovascular: denies: No Symptoms, Chest Pain, Edema, Palpitations, Shortness of Breath, Other Respiratory: denies: No Symptoms, Cough, Exercise Intolerance, Hemoptysis, Orthopnea, PND, Snoring, SOB, SOB on Exertion, Wheezing, Other Gastrointestinal: denies: No Symptoms, Abdominal Pain, Bloating, Constipation, Diarrhea, Dysphagia, Indigestion, Melena, Nausea, Rectal Bleeding, Vomiting, Vomiting Blood, Other Genitourinary: denies: No Symptoms, Burning, Discharge, Dysuria, Flank Pain, Frequency, Hematuria, Incontinence, Lesions, Menses, Pain, Testicular Mass, Testicular Pain, Testicular Swelling, Urgency, Vaginal Bleeding, Other Breasts: denies: No Symptoms Reported, See HPI, Breast Implants, Discharge from Nipple, Lumps, Pain, Skin Changes, Other Musculoskeletal: denies: No Symptoms, Back Pain, Crepitus, Decreased ROM, Extremity Pain, Joint Pain, Joint Swelling, Muscle Pain, Muscle Cramps, Muscle Weakness, Other Integumentary: denies: No Symptoms, Blister, Bruising, Change in Color, Eczema, Erythema, Incision, Lesions, Lump, Pallor, Pruritis, Rash, Wound, Other Neurological: denies: No Symptoms, Change in LOC, Change in Speech, Confusion, Dizziness, Headache, Incoordination, Numbness, Parasthesia, Pre-Existing Deficit , Seizure, Syncope, Tremors, Unsteady Gait, Weakness, Other Endocrine: denies: No Symptoms, Excessive Sweating, Flushing, Increased Hunger, Increased Thirst, Intolerance to Cold, Intolerance to Heat, Unexplained Weight Gain, Unexplained Weight Loss, Other Hematology/Lymphatic: denies: No Symptoms, Easily Bruised, Excessive Bleeding, Swollen Glands, Other Psychiatric: denies: No Symptoms, Altered Sleep Pattern, Anxiety, Depression, Hallucinations, Panic, Paranoia, Suicidal, Other - Risk Factors Known Risk Factors: Yes: Age, Hypertension Vital Signs: Vital Signs Temperature 98.2 F 12/12/18 14:05 Pulse Rate 80 12/12/18 14:05 Respiratory Rate 18 12/12/18 14:05 Blood Pressure 133/78 12/12/18 14:05 O2 Sat by Pulse Oximetry (%) 98 12/12/18 08:44 Constitutional: Yes: No Distress, Calm Eyes: Yes: Conjunctiva Clear, EOM Intact, PERRL HENT: Yes: Atraumatic, Normocephalic Neck: Yes: Supple, Trachea Midline Respiratory: Yes: Regular, CTA Bilaterally. No: Rales, Rhonchi, SOB, Wheezes Gastrointestinal: Yes: Normal Bowel Sounds, Soft. No: Distention, Tenderness Cardiovascular: Yes: Regular Rate and Rhythm. No: Bradycardia, Tachycardia, Pulse Irregular, Gallop, Rub, Varicosities JVD: No Carotid Bruit: No PMI: Non-Displaced Heart Sounds: Yes: S1, S2. No: Split S2, S3, S4, Clicks, Gallop, Rub, Bruit Murmur: No: Systolic Murmur, Diastolic Murmur Musculoskeletal: Yes: WNL Extremities: Yes: WNL Edema: No Peripheral Pulses WNL: Yes Peripheral Pulses: 2+ Left Doralis Pedis, 2+ Right Dorsalis Pedis Neurological: Yes: Alert, Oriented Psychiatric: Yes: Alert, Oriented - Other Data Labs, Other Data: CBC, BMP 12/11/18 13:22 12/11/18 13:22 INR, PTT INR 1.06 (0.83-1.09) 12/11/18 13:22 Troponin, BNP 12/12/18 11:55 Troponin I 0.02 Troponin, BNP 12/12/18 11:55 Troponin I 0.02 ekg nsr, lvh, nsst Echo: Report Reviewed Imaging - Results Chest X-ray: Report Reviewed, Image Reviewed EKG: Report Reviewed, Image Reviewed Other: Report Reviewed, Image Reviewed (tele-nsr, frequent pvcs, ventricular couplets, no sig arrhythmias) Assessment/Plan 78 year old man with pmh HTN, prior CVA 2015 with residual R sided weakness, cervical spine radiculopathy, prior head trauma in the [place] admitted from his doctors office for syncope. pt states that he was sitting in his doctors office when he suddenly lost consciousness. he thought he fell asleep. no preceding symptoms. his son witnessed it and states he was unresponsive to sternal rub only woke up when ems arrived and placed an IV. As per report ems found him to be hypotensive. pt states he has had 2 similar episodes in the past, one a few years ago and 1 in 2014 at the time of his cva. denies any chest pain, sob, palpitations, lightheadedness, dizziness, pnd, orthopnea, or LE edema. Syncope-uncertain etiology -occurred while seated with no preceding symptoms -cardiac enzymes wnl, ekg no ischemia, nsr -no sig arrhythmias on tele thus far only pvcs -echo today showed normal LV systoilc function, mod AR, no pericardial effusion , no other sig structural heart disease that would lead to syncope. -unlikely arrhythmia source given no preceding symptoms and normal LV systolic function -cont tele until tomorrow, if no arrhythmias recorded can dc tele -no other additional inpatient cardiac work up needed at this time -would recc outpatient fup and further event monitoring
[2018-12-12] MEDS ORDERED: DONEPEZIL HCL 10 MG TABLET (FP) PO SCH (22:00)
[2018-12-12] MEDS ORDERED: ATORVASTATIN CA 20 MG TABLET (FP) PO SCH (22:00)
[2018-12-12] MEDS ORDERED: NORTRIPTYLINE HCL 10 MG CAPSULE PO SCH (22:00)
[2018-12-12] MEDS: HEPARIN NA (PORCINE) 5,000 UNITS/ML 1ML VIAL SQ SCH (22:05)
[2018-12-13] MEDS: TAMSULOSIN HCL 0.4 MG CAP PO SCH (09:38)
[2018-12-13] MEDS: METOPROLOL TARTRATE 25 MG TABLET (FP) PO SCH (09:38)
[2018-12-13] MEDS: HEPARIN NA (PORCINE) 5,000 UNITS/ML 1ML VIAL SQ SCH (09:38)
[2018-12-13] MEDS ORDERED: ASPIRIN 81 MG CHEWABLE TABLETS PO SCH (10:00)
--- NOTE | 2018-12-13 13:05 | DS ---
Physical Examination Vital Signs: Vital Signs Temperature 97.4 F L 12/13/18 06:00 Pulse Rate 88 12/13/18 09:45 Respiratory Rate 18 12/13/18 09:45 Blood Pressure 151/88 12/13/18 09:45 O2 Sat by Pulse Oximetry (%) 95 12/13/18 07:31 Constitutional: Yes: No Distress, Calm Cardiovascular: Yes: Regular Rate and Rhythm Respiratory: Yes: CTA Bilaterally Gastrointestinal: Yes: Normal Bowel Sounds, Soft. No: Tenderness Edema: No Labs: CBC, BMP 12/11/18 13:22 12/11/18 13:22 Discharge Summary Reason For Visit: SYNCOPE Current Active Problems Dementia (Acute) HTN (hypertension) (Acute) Syncopal episodes (Acute) Weakness (Acute) Hospital Course: Admitted for syncope Seen by Cardiology CT head-- negative carotid doppler-- no stenosis Echo-- Normal LVEF meds noted , dc gabapentin, Finasteride stable for dc home-- will need to follow up with cardiology as outpt for event monitor /loop monitor Condition: Improved - Instructions Referrals: Jakob Galarza MD [Staff Physician] - Disposition: HOME - Home Medications Comprehensive Discharge Medication List: Ambulatory Orders Amlodipine Besylate 5 mg PO DAILY 12/15/16 Finasteride 5 mg PO DAILY 12/11/18 Nortriptyline HCl [Pamelor -] 10 mg PO HS 12/11/18 Oxybutynin Chloride [Ditropan Xl] 10 mg PO DAILY 12/11/18 Tamsulosin HCl 0.4 mg PO DAILY 12/11/18 Amlodipine Besylate 5 mg PO DAILY 12/12/18 Aspirin [ASA -] 81 mg PO DAILY 12/12/18 Atorvastatin Ca [Lipitor] 10 mg PO HS 12/12/18 Donepezil HCl 10 mg PO DAILY 12/12/18 Finasteride 5 mg PO DAILY 12/12/18 Gabapentin 300 mg PO DAILY 12/12/18 Metoprolol Tartrate 25 mg PO DAILY 12/12/18 Oxybutynin Chloride [Oxybutynin Chloride ER] 10 mg PO DAILY 12/12/18 Tamsulosin HCl 0.4 mg PO DAILY 12/12/18
[2018-12-13 14:33] VITALS: BP 129/68; PULSE 65; TEMP 98.1
== END 2018-12-13 15:32 | disposition home or self-care (01) ==
LOC: JER 12:49 → JERBED 17:07 → J4W 12-12 04:15
PROVIDERS: ADMIT Internal Medicine; ATTEND Internal Medicine
PROC: 3E013GC Introduction of Other Therapeutic Substance into Subcutaneous Tissue, Percutaneous Approach (ICD-10-PCS; principal; 2018-12-11)
PROC: 3E0337Z Introduction of Electrolytic and Water Balance Substance into Peripheral Vein, Percutaneous Approach (ICD-10-PCS; 2018-12-11)
DX: R55 Syncope and collapse (principal); I10 Essential (primary) hypertension; E78.5 Hyperlipidemia, unspecified; F03.90 Unspecified dementia, unspecified severity, without behavioral disturbance, psychotic disturbance, mood disturbance, and anxiety; I69.351 Hemiplegia and hemiparesis following cerebral infarction affecting right dominant side; M54.12 Radiculopathy, cervical region; G47.33 Obstructive sleep apnea (adult) (pediatric); F43.10 Post-traumatic stress disorder, unspecified
CPT/HCPCS: 36415; 70450-TC; 71045-TC-FY; 80053; 81003; 81015; 82550; 82553; 82962; 83735; 84484; 85025; 85610; 87086; 87186; 93005; 93010; 93306-TC; 93880-TC; 96372; 97116-GP; 97161-GP; 99285-25; G0378; J1644; J7030

== ENCOUNTER 2021-02-15 14:31 | Observation (INO) | payer OTHER, MEDICARE ==
[2021-02-15] MEDS ORDERED: SODIUM CHLORIDE 500 ML IV STA (18:03)
[2021-02-15 19:52] LABS: BASO % 0.6 % (0-2.0); EOS % 0.3 % (0-4.5); HEMATOCRIT 36.9 % (35.4-49); HEMOGLOBIN 12.7 GM/dL (11.7-16.9); LYMPH % 11.1 % (8-40); MCH 31.5 pg (25.7-33.7); MCHC 34.5 g/dl (32.0-35.9); MEAN CELL VOLUME 91.2 fl (80-96); MEAN PLT VOLUME 7.8 fl (7.5-11.1); MONO % 4.4 % (3.8-10.2); NEUT % 83.6 % (42.8-82.8); PLATELET COUNT 249 K/MM3 (134-434); RBC 4.04 M/mm3 (4.00-5.60); RDW 14.5 % (11.9-15.9); WHITE BLOOD COUNT 7.4 K/mm3 (4.0-10.0)
[2021-02-15 19:59] LABS: INR 0.98 (0.83-1.09); PROTHROMBIN TIME (PATIENT) 11.9 SEC (9.7-13.0)
[2021-02-15 20:02] LABS: ACTIVATED PTT 41.9 SECONDS (25.2-36.5)
[2021-02-15 20:09] LABS: CHLORIDE 104 mmol/L (98-107); SODIUM 136 mmol/L (136-145)
[2021-02-15 20:11] LABS: CALCIUM 8.4 mg/dL (8.5-10.1)
[2021-02-15 20:12] LABS: ALBUMIN 3.5 g/dl (3.4-5.0); ANION GAP 5 MMOL/L (8-16); BLOOD UREA NITROGEN 18.1 mg/dL (7-18); CO2 27 mmol/L (21-32); GLUCOSE,RANDOM 119 mg/dL (74-106); MAGNESIUM 2.3 mg/dL (1.8-2.4)
[2021-02-15 20:15] LABS: CREATININE 1.2 mg/dL (0.55-1.3); SGOT/AST 16 U/L (15-37); SGPT/ALT 26 U/L (13-61)
[2021-02-15 20:16] LABS: BILIRUBIN,TOTAL 1.6 mg/dL (0.2-1); TOT PROT 6.7 g/dl (6.4-8.2)
[2021-02-15 20:18] LABS: ALK PHOS 57 U/L (45-117)
[2021-02-15 20:59] LABS: PH,URINE 6.5 (5.0-8.0); URINE APPEARANCE CLEAR; URINE BILIRUBIN NEGATIVE (NEGATIVE); URINE COLOR YELLOW; URINE GLUCOSE (UA) NEGATIVE (NEGATIVE); URINE KETONE NEGATIVE (NEGATIVE); URINE LEUK ESTERASE NEGATIVE (NEGATIVE); URINE NITRITE NEGATIVE (NEGATIVE); URINE PROTEIN NEGATIVE (NEGATIVE); URINE UROBILINOGEN 0.2 mg/dL (0.2-1.0)
[2021-02-16] MEDS ORDERED: GABAPENTIN 100 MG CAPSULE ONE ×2 (06:03→14:18)
[2021-02-16] MEDS ORDERED: HEPARIN NA (PORCINE) 5,000 UNITS/ML 1ML VIAL ONE ×3 (06:04→15:38)
[2021-02-16] MEDS: GABAPENTIN 100 MG CAPSULE PO SCH ×3 (06:10→22:50)
[2021-02-16] MEDS: HEPARIN NA (PORCINE) 5,000 UNITS/ML 1ML VIAL SQ SCH ×3 (06:10→22:50)
[2021-02-16] MEDS ORDERED: ASPIRIN COATED 81 MG TABLET.EC ONE (07:47)
[2021-02-16] MEDS ORDERED: TAMSULOSIN HCL 0.4 MG CAP ONE (07:48)
[2021-02-16] MEDS ORDERED: amLODIPine BESYLATE 5 MG TABLET (FP) ONE (07:48)
[2021-02-16 07:57] LABS: BASO % 1.2 % (0-2.0); EOS % 1.5 % (0-4.5); HEMATOCRIT 35.2 % (35.4-49); HEMOGLOBIN 12.3 GM/dL (11.7-16.9); LYMPH % 22.3 % (8-40); MCH 31.7 pg (25.7-33.7); MCHC 34.9 g/dl (32.0-35.9); MEAN CELL VOLUME 90.8 fl (80-96); MEAN PLT VOLUME 8.2 fl (7.5-11.1); MONO % 8.9 % (3.8-10.2); NEUT % 66.1 % (42.8-82.8); PLATELET COUNT 219 K/MM3 (134-434); RBC 3.88 M/mm3 (4.00-5.60); RDW 14.7 % (11.9-15.9); WHITE BLOOD COUNT 8.7 K/mm3 (4.0-10.0)
[2021-02-16] MEDS: TAMSULOSIN HCL 0.4 MG CAP PO SCH (08:00)
[2021-02-16 08:02] LABS: POTASSIUM 4.2 mmol/L (3.5-5.1)
[2021-02-16 08:04] LABS: ALBUMIN 3.2 g/dl (3.4-5.0); CALCIUM 8.5 mg/dL (8.5-10.1)
[2021-02-16 08:05] LABS: BLOOD UREA NITROGEN 16.2 mg/dL (7-18)
[2021-02-16 08:09] LABS: BILIRUBIN,TOTAL 1.4 mg/dL (0.2-1); TOT PROT 6.4 g/dl (6.4-8.2)
[2021-02-16] MEDS: CALCIUM 500MG/VIT-D 200 UNITS COMBO TABLET (FP) PO SCH ×2 (09:34→22:50)
[2021-02-16] MEDS: MEMANTINE HCL 10 MG TABLET (FP) PO SCH ×2 (09:34→22:50)
[2021-02-16] MEDS: amLODIPine BESYLATE 5 MG TABLET (FP) PO SCH (09:34)
[2021-02-16] MEDS: FINASTERIDE 5 MG TABLET (FP) PO SCH (09:34)
[2021-02-16] MEDS: ASPIRIN COATED 81 MG TABLET.EC PO SCH (09:34)
[2021-02-16] MEDS: ATORVASTATIN CA 10 MG TABLET (FP) PO SCH (22:50)
[2021-02-16] MEDS: DONEPEZIL HCL 5 MG TABLET (FP) PO SCH (22:50)
[2021-02-17 04:24] VITALS: BMI 20.3
[2021-02-17] MEDS: HEPARIN NA (PORCINE) 5,000 UNITS/ML 1ML VIAL SQ SCH ×3 (06:35→21:32)
[2021-02-17] MEDS: GABAPENTIN 100 MG CAPSULE PO SCH ×3 (06:35→21:32)
[2021-02-17] MEDS ORDERED: PT OWN MED DRAWER 7, Y5N ONE ×2 (10:06→17:27)
[2021-02-17] MEDS: FINASTERIDE 5 MG TABLET (FP) PO SCH (10:21)
[2021-02-17] MEDS: amLODIPine BESYLATE 5 MG TABLET (FP) PO SCH (10:21)
[2021-02-17] MEDS: MEMANTINE HCL 10 MG TABLET (FP) PO SCH ×2 (10:21→21:32)
[2021-02-17] MEDS: CALCIUM 500MG/VIT-D 200 UNITS COMBO TABLET (FP) PO SCH ×2 (10:21→21:32)
[2021-02-17] MEDS: ASPIRIN COATED 81 MG TABLET.EC PO SCH (10:21)
[2021-02-17] MEDS: TAMSULOSIN HCL 0.4 MG CAP PO SCH (10:21)
[2021-02-17] MEDS: ATORVASTATIN CA 10 MG TABLET (FP) PO SCH (21:32)
[2021-02-17] MEDS: DONEPEZIL HCL 5 MG TABLET (FP) PO SCH (21:34)
[2021-02-17] MEDS ORDERED: PATIENT'S OWN MEDICATION (NON-FORMULARY) (Mirabegron [Myrbetriq] 25 MG Tab.Er.24h) PO SCH (22:00)
[2021-02-18] MEDS: GABAPENTIN 100 MG CAPSULE PO SCH (06:07)
[2021-02-18] MEDS: HEPARIN NA (PORCINE) 5,000 UNITS/ML 1ML VIAL SQ SCH (06:08)
[2021-02-18] MEDS: CALCIUM 500MG/VIT-D 200 UNITS COMBO TABLET (FP) PO SCH (09:29)
[2021-02-18] MEDS: MEMANTINE HCL 10 MG TABLET (FP) PO SCH (09:29)
[2021-02-18] MEDS: amLODIPine BESYLATE 5 MG TABLET (FP) PO SCH (09:29)
[2021-02-18] MEDS: TAMSULOSIN HCL 0.4 MG CAP PO SCH (09:29)
[2021-02-18] MEDS: FINASTERIDE 5 MG TABLET (FP) PO SCH (09:29)
[2021-02-18] MEDS: ASPIRIN COATED 81 MG TABLET.EC PO SCH (09:29)
[2021-02-18 14:28] VITALS: BP 144/76; PULSE 90; TEMP 98.3
== END 2021-02-18 15:30 | disposition home or self-care (01) ==
LOC: JER 14:31 → JERBED 21:53 → INTOOBSV 21:53 → UNDOADMOB 21:53 → JERBED 02-16 22:01 → J4S 02-16 22:01 → JERBED 02-17 15:20 → J4S 02-17 15:20
PROVIDERS: ATTEND Internal Medicine
PROC: 3E023GC Introduction of Other Therapeutic Substance into Muscle, Percutaneous Approach (ICD-10-PCS; principal; 2021-02-17)
PROC: 3E0337Z Introduction of Electrolytic and Water Balance Substance into Peripheral Vein, Percutaneous Approach (ICD-10-PCS; 2021-02-17)
DX: R41.82 Altered mental status, unspecified (principal); R55 Syncope and collapse; Z91.09 Other allergy status, other than to drugs and biological substances; I63.9 Cerebral infarction, unspecified; F03.90 Unspecified dementia, unspecified severity, without behavioral disturbance, psychotic disturbance, mood disturbance, and anxiety; I10 Essential (primary) hypertension; I35.1 Nonrheumatic aortic (valve) insufficiency; F32.9 Major depressive disorder, single episode, unspecified; E78.5 Hyperlipidemia, unspecified; N40.0 Benign prostatic hyperplasia without lower urinary tract symptoms; G62.9 Polyneuropathy, unspecified
CPT/HCPCS: 36415; 70450-TC; 71046-TC-FY; 80053; 80061; 81003; 82550; 82607; 83036; 83721; 83735; 84443; 84484; 85025; 85610; 85730; 86780; 87086; 93005; 93010; 93306-TC; 93880-TC; 96360; 96372; 97116-GP; 97162-GP; 99285-25; C9803; G0378; J1644; U0003; U0005